=== PATIENT | female | born 1950 | race Caucasian/White ===

== ENCOUNTER 2017-12-27 05:31 | Inpatient (IN) | payer OTHER ==
[~2017-12-27] VITALS: Ht 154.9 cm; Wt 91.6 kg
--- NOTE | ~2017-12-27 | O ---
[facility] [place] [address] OPERATIVE REPORT Name: FLORENCIO ZENDEJAS Room #: 417-I [facility] IN M.R.#: [id number] Admission: 12/27/17 Attend Phys: Jamie Borden MD, F Discharge: Date of : 46 Report #: [id number] THIS REPORT FOR: //name// CC: Eden Borden DATE OF SERVICE: 12/27/2017 PREOPERATIVE DIAGNOSES: 1. Morbid obesity. 2. Diabetes mellitus. 3. Arthritis. 4. Hypertension. 5. Hypercholesterolemia. POSTOPERATIVE DIAGNOSES: 1. Morbid obesity. 2. Diabetes mellitus. 3. Arthritis. 4. Hypertension. 5. Hypercholesterolemia. SURGEON: Jamie Borden MD. PROCEDURE: Laparoscopic sleeve gastrectomy and esophagogastroduodenoscopy. ANESTHESIA: General endotracheal anesthesia and local anesthetic. ESTIMATED BLOOD LOSS: 5 mL. SPECIMEN: Lateral stomach. COMPLICATIONS: None appreciated. INDICATIONS FOR PROCEDURE: This is a 67-year-old female patient of Dr. Eden Pack who stands 5 feet 1 inch and weighed 202 pounds at her last office visit with a BMI of nearly 40. She has numerous weight-associated comorbid conditions. She has had difficulty with her weight since having undergone a hysterectomy 30 years ago. She has tried numerous weight loss programs and plans with limited weight loss success. She has been cleared from a multidisciplinary standpoint for bariatric surgery and presents now for laparoscopic sleeve gastrectomy. OPERATIVE FINDINGS: On EGD, the patient had a normal esophagus, stomach and duodenum to the third portion without polyps, masses, diverticula or ulcers. There was no evidence for hiatal hernia. [facility] [address] [place] [address] OPERATIVE REPORT Name: FLORENCIO ZENDEJAS Room #: 417-I ADM IN M.R.#: [id number] Admission: 12/27/17 Attend Phys: Jamie Borden MD, F Discharge: Date of : 46 Report #: [id number] Laparoscopically, the patient had an enlarged stomach as expected. The liver, small bowel, and colon in the surrounding area appeared otherwise normal. Some adhesions were seen in the lower abdomen, which were not felt to cause obstruction. No other significant intra-abdominal pathology was seen. The gastric sleeve staple line was located 4 cm lateral/proximal to the pylorus, 3 cm lateral to the incisura of the stomach, and 1 cm lateral to the GE junction. There is no evidence for staple line leak. Immediately after applying 10 mL of Tisseel to the staple line, the gastroscope was used to insufflate air into the stomach. No air bubbles were seen forming in the Tisseel, indicative of a negative leak test. Endoscopically, the sleeve was well contoured and without hemorrhage. After removal of the stomach from the abdominal cavity, it was filled with 750 mL of saline on the backtable. No other significant intraabdominal pathology was identified. Upon creation of the sleeve, the staple line was measured at 4 cm from the pylorus. A 3 cm distance was present between the stapler and incisura. After removal of the stomach from the patient's body, it was filled with 1 liter of normal saline. Upon return to the abdominal cavity, the staple line was hemostatic. During removal of the endoscope, there was no bleeding within the stomach and there was no evidence for leak on the leak test described below. At the conclusion of the operation, the sponge, needle and instrument counts were correct. DESCRIPTION OF PROCEDURE IN DETAIL: After the benefits and risks of the procedure were explained to the patient which include but are not limited to risks of bleeding, infection, postoperative pain, postoperative expectations and risks of DVT and pulmonary embolus, informed consent was obtained. The patient was identified in the preoperative holding area. The patient was given IV antibiotics as documented in the chart in line with [facility] protocol. The patient was then taken to the operating room and was placed in the supine position. The patient was given IV sedation and was intubated without incident. SCDs were placed on the patient's bilateral lower extremities prior to induction of anesthesia. The patient had been placed in the modified low lying dorsal lithotomy position in stirrups on the beanbag. The beanbag and the patient were taped to the bed to secure the patient. A time-out was then performed to correctly identify the patient and procedure. An orogastric tube was placed by anesthesia. A bite block was placed and the fiberoptic EGD scope was passed into the patient's oropharynx, down the esophagus, into the stomach, and into the third portion of the duodenum. Findings are as noted above. The scope was slowly withdrawn into the antrum and the scope was retroflexed. The hiatus was visualized. The scope was then straightened and the end of the gastroscope was placed at the pylorus. The stomach was decompressed with the scope. [facility] [address] [place] [address] OPERATIVE REPORT Name: FLORENCIO ZENDEJAS Room #: 417-I ADM IN [place].Radha.#: [id number] Admission: 12/27/17 Attend Phys: Jamie Borden MD, F Discharge: Date of : 46 Report #: [id number] The patient's abdomen was then prepped and draped in the standard sterile fashion with surgical prep. Local anesthetic was infiltrated into the skin and subcutaneous tissue in the left supraumbilical area where a sharp #15-blade scalpel was used to make a 5-mm incision. The 5-mm Visiport was placed intraperitoneally with the 5-mm 0-degree angled laparoscope. Pneumoperitoneum was then achieved with insufflation of carbon dioxide to 15 mmHg. A 5-mm 30-degree angled laparoscope was then inserted. The 15-mm port was placed in the right supraumbilical area after local anesthetic was infiltrated into the skin and subcutaneous tissue and an appropriately sized incision was made. Two additional 5 mm ports were placed in the left abdomen after local anesthetic was infiltrated and incisions were made. All ports were placed under direct visualization. The patient was then placed in reverse Trendelenburg position. Local anesthetic was infiltrated into the skin and subcutaneous tissue in the subxiphoid area and a 5-mm incision was made through which a 5-mm obturator was passed into the abdominal cavity through the fascia to create a passageway for the Tracey liver retractor. The retractor was placed to retract the liver anteriorly. The retractor was held in place with the [employer] apparatus. All abdominal adhesions were then taken down with blunt dissection, sharp dissection and judicious use of the ultrasonic dissector. The gastrosplenic ligament and short gastric vessels were then divided using the ultrasonic dissector with appropriate traction. Bleeding points were made hemostatic with the ultrasonic dissector. Dissection was carried proximally up to the left jeniffer of the diaphragm. The distal end point of dissection was then measured at 4 cm proximal to the pylorus. The short gastric vessels and gastrocolic ligaments were dissected to that level. The stomach was then rotated medially to visualize any posterior attachments/adhesions to the stomach. The adhesions were dissected with a combination of sharp dissection and use of the ultrasonic dissector. The endoscope was then slightly withdrawn to place it along the lesser curvature of the stomach. Suction was applied to the orogastric tube which was then removed, leaving the endoscope in place as a 34-English bougie. The gastric sleeve was then created. Two black loads of the powered endoscopic ROSARIO stapler buttressed with Romelia-Strips were used to staple and divide the stomach 4 cm proximal to the pylorus. Additional green loads buttressed with Romelia-strips were used to staple off the remainder of the stomach using the endoscope as the bougie. Care was taken to ensure that greater than 3 cm of space was present between the incisura and the staple line. The stomach was fully transected and placed in the right upper quadrant of the abdomen for later removal. 10 mL of Tisseel was applied to the entire length of the staple line with the [employer] aerosolizer to fully ensure hemostasis, seal the staple line, and perform the leak test. The leak test was performed next. The sleeve was insufflated with the CO2 using the endoscope which was slowly withdrawn. No air bubbles were seen [facility] [address] [place] [address] OPERATIVE REPORT Name: FLORENCIO ZENDEJAS Room #: 417-I ADM IN M.R.#: [id number] Admission: 12/27/17 Attend Phys: Jamie Borden MD, F Discharge: Date of : 46 Report #: [id number] forming in the Tisseel laparoscopically. Endoluminally, no bleeding was seen. The stomach was fully decompressed and the scope was slowly withdrawn. The Tracey liver retractor was then loosened from the [employer] apparatus and it was removed without difficulty. The stomach was then removed from the patient's body through the 15-mm port under direct visualization. A small amount stretching of the fascia was required to create an opening large enough for removal of the stomach. After its removal, the 15-mm port site fascial opening was closed with an 0-PDS suture using the Rod-Michelle laparoscopic fascial closure device. All ports were removed after the abdominal cavity was desufflated. The fascial suture was tied. Interrupted subcuticular 4-0 Monocryl sutures and Dermabond were used to close all skin incisions. The patient tolerated the procedure well. The patient was awakened, extubated and taken to the recovery room in stable condition with no apparent intraoperative complications. <ELECTRONICALLY SIGNED> By: Jamie Borden MD, FACS 12/27/17 [id number] Jamie Borden MD, FACS /nt
--- NOTE | ~2017-12-27 | PATH ---
[facility] [address] [place] [address] PATHOLOGY RPT PROCEDURE Name: FLORENCIO YUEN Room #: 417-I DIS IN M.R.#: [id number] Admission: 12/27/17 Date of : 46 Discharge: 12/28/17 Report #: [id number] Path Case #: [id number] [facility] Accession Number: [id number] . 01 Material submitted: . STOMACH . 01 Clinical history: . Morbid obesity. . 02 Diagnosis: Stomach, partial stomach, laparoscopic sleeve gastrectomy: - Helicobacter pylori induced moderate active gastritis. - Negative for intestinal metaplasia or atrophy. - Well controlled Helicobacter pylori immunohistochemical stain performed showing a moderate number of organisms. (IUV/db; 12/29/17) LBQ/12/29/2017 . 02 Electronically signed: . Grisel Mujica MD, Pathologist NPI- [id number] . 01 Gross description: . Received in formalin labeled "Florencio Yuen stomach" is a partial gastrectomy specimen measuring 22.5 x 5.0 x 1.5 cm. The external surface is pink-whitehead and smooth with multiple staple lines measuring 4.5-5.2 cm. The staple lines are removed and the specimen is opened to reveal pink-whitehead grossly unremarkable mucosa without polyps or other abnormalities identified. Belt Brander sections are submitted in cassettes A1-A3. ([facility]; 12/27/2017) SYC/SY . 02 Pathologist provided ICD-10: K29.70, B96.81 . 02 CPT . 994542, F70023 Specimen Comment: A courtesy copy of this report has been sent to Specimen Comment: [phone], . Specimen Comment: [id number] Specimen Comment: A duplicate report has been generated due to demographic updates. Performed at: [address], [place], [place] [id number] MD Cooper Mcallister MD Phone: [phone] [address] [address] PATHOLOGY RPT PROCEDURE Name: FLORENCIO YUEN CONSTANZA Room #: 417-I DIS IN M.R.#: [id number] Admission: 12/27/17 Date of : 46 Discharge: 12/28/17 Report #: [id number] Path Case #: [id number] Performed at: [address] [id number] MD Grisel Mujica MD Phone: [phone]
[~2017-12-27 05:31] MED LIST: ASPIRIN EC81 M1 PO; CALCIUM 600 +1 EAC1 PO; CELEXA 20 MG TA20 M1 PO; CENTRUM SILVER1 EAC4 PO; FISH OIL 1,001000 M2 PO; FISH OIL PO; FLEXERIL PO; LEVOTHYROXIN0.112 M1 PO; LEVOTHYROXIN0.125 M1 PO; LISINOPRIL10 MG PO; MOBIC15 MG PO; NORCO 5-325 TA1 EACH PO; PRAVACHOL80 MG PO; SYNTHROID125 MC1 PO; ZYRTEC10 M2 PO
[2017-12-27 06:45] LABS: HEMATOCRIT 41.6 % (37.0-47.0); HEMOGLOBIN 13.9 gm/dL (12.0-15.0)
[2017-12-27 07:25] VITALS: BP 115/70
[2017-12-27 10:56] VITALS: BP 125/65
[2017-12-27 15:18] VITALS: BP 125/65
[2017-12-27 16:08] VITALS: BP 121/64
[2017-12-27 20:30] VITALS: BP 139/68
[2017-12-28 04:30] VITALS: BP 158/92
[2017-12-28 05:51] LABS: BASOPHILS 0.3 % (0.0-2.0); HEMATOCRIT 36.2 % (37.0-47.0); LYMPHOCYTES 8.8 % (24.0-44.0); MCHC 32.5 g/dL (28.0-37.0); MCV 86.2 fL (80.0-100.0); MONOCYTES 6.6 % (1.0-8.0); PLATELET COUNT 290 thou/uL (150-400); POLYS 84.3 % (36.0-66.0); RDW 14.9 % (10.5-14.5)
[2017-12-28 06:02] LABS: HEMOGLOBIN 11.8 gm/dL (12.0-15.0)
[2017-12-28 06:11] LABS: CALCIUM 8.3 mg/dL (8.5-10.1); POTASSIUM 4.3 mmol/L (3.5-5.1)
[2017-12-28 07:17] VITALS: BP 116/51
[2017-12-28 11:32] VITALS: BP 116/51
== END 2017-12-28 12:15 | disposition home or self-care (01) | DRG 620 ==
LOC: 4E 05:31 → TBA 05:31 → 4E 08:55 → PRE 11:05 → ENTRNSPT 12-28 11:56 → EDTRNSPTSTS 12-28 12:00 → 4E 12-28 12:15
PROVIDERS: Surgery
PROC: 0DB64Z3 Excision of Stomach, Percutaneous Endoscopic Approach, Vertical (ICD-10-PCS; principal; 2017-12-27)
PROC: 0DJ08ZZ Inspection of Upper Intestinal Tract, Via Natural or Artificial Opening Endoscopic (ICD-10-PCS; principal; 2017-12-27)
DX: E66.01 Morbid (severe) obesity due to excess calories (principal); D62 Acute posthemorrhagic anemia; E11.9 Type 2 diabetes mellitus without complications; M19.90 Unspecified osteoarthritis, unspecified site; I10 Essential (primary) hypertension; E78.00 Pure hypercholesterolemia, unspecified; G47.33 Obstructive sleep apnea (adult) (pediatric); I25.10 Atherosclerotic heart disease of native coronary artery without angina pectoris; G89.29 Other chronic pain; M54.5 Low back pain; E78.2 Mixed hyperlipidemia; F32.9 Major depressive disorder, single episode, unspecified; Z68.38 Body mass index [BMI] 38.0-38.9, adult; Z88.6 Allergy status to analgesic agent; Z88.1 Allergy status to other antibiotic agents; Z79.899 Other long term (current) drug therapy
CPT/HCPCS: 10783; 50010; 50101; 50222; 50249; 50386; 50555; 50739; 50740; 50962; 51437; 52182; 52265; 53307; 53311; 54022; 54118; 56462; 56525; 56526; 57092; 62110; 62900; 70005